=== PATIENT | male | born 1960 | race Caucasian/White ===

== ENCOUNTER → 2016-06-17 | Outpatient (CLI) | payer OTHER ==
--- NOTE | 2016-06-17 13:28 | REP ---
Clinical: Pain and swelling with recent trauma. Technique: AP, lateral, bilateral oblique and sunrise views. Findings: Marked anterior and prepatellar soft tissue swelling is appreciated. No acute fracture or dislocation identified. No definite effusion. No subcutaneous emphysema or radiodense foreign body. Impression: Marked anterior prepatellar soft tissue swelling. Signed by Ranjit Au MD 06/17/2016 01:20 P
== END ==
LOC: M ADAMS 11:41
PROVIDERS: ATTEND Physician Assistant Medical
DX: S80.01XA Contusion of right knee, initial encounter (principal); X58.XXXA Exposure to other specified factors, initial encounter; Y92.89 Other specified places as the place of occurrence of the external cause; Y93.89 Activity, other specified; Y99.8 Other external cause status